=== PATIENT | male | born 1975 | race Caucasian/White ===

== ENCOUNTER 2022-04-29 09:26 | Outpatient (REF) | payer OTHER, SELFPAY ==
[2022-04-29 09:52] LABS: MANUAL DIFF FLAG NO
[2022-04-29 09:59] LABS: Basophils Absolute Auto 0.1 X10*3/uL (0.0-0.2); Basophils Percent Auto 0.4 % (0-2); Eosinophils Absolute Auto 0.2 X10*3/uL (0.0-0.4); Eosinophils Percent Auto 1.6 % (0-4); Hemoglobin 15.2 g/dl (14.0-18.0); Imm Gran Abs Auto 0.05 X10*3/uL (0.00-0.03); Imm Gran Pct Auto 0.4 % (0.0-0.4); Lymphocytes Absolute Auto 2.6 X10*3/uL (1.2-4.9); Lymphocytes Percent Auto 19.1 % (20-40); Mean Corpuscular Hemoglobin 30.9 pg (27.0-33.0); Mean Corpuscular Volume 93.5 fL (80.0-98.0); Mean Platelet Volume 9.3 fL (9.4-12.4); Monocytes Absolute Auto 0.8 X10*3/uL (0.1-1.2); Monocytes Percent Auto 6.1 % (2-11); Neutrophils Absolute Auto 9.7 x10*3/uL (2.0-8.3); Neutrophils Percent Auto 72.4 % (45-73); Platelet Count 371 X10*3/uL (160-400); Red Blood Count 4.92 X10*6/uL (4.60-5.80); White Blood Count 13.4 X10*3/uL (4.8-10.8)
[2022-04-29 11:38] LABS: Alanine Aminotransferase 39 U/L (0-40); Albumin Level 4.2 g/dL (3.5-5.0); Alkaline Phosphatase 98 U/L (39-117); Anion Gap 12 (12-20); Aspartate Amino Transferase 21 U/L (5-37); Bilirubin Total 0.5 mg/dL (0.0-1.0); Blood Urea Nitrogen 12 mg/dL (9-16); Calcium 9.4 mg/dL (8.4-10.2); Carbon Dioxide 26 mmol/L (22-29); Chloride 106 mmol/L (96-108); Cholesterol 180 mg/dL; Estimated Glomerular Filt Rate > 60; Glucose Random 88 mg/dL (60-115); HDL Cholesterol 32 mg/dL; LDL Cholesterol Calculated 116 mg/dl; Potassium 4.6 mmol/L (3.3-5.1); Sodium 139 mmol/L (135-145); Total Protein 6.6 g/dL (6.5-8.0); Triglycerides 163 mg/dL
[2022-04-29 12:00] LABS: HIV AB/AG Nonreactive (Nonreactive); HIV Num 1 0.07 S/CO (0.00-0.99)
[2022-04-29 12:05] LABS: Syphilis Screen Reactive (Nonreactive)
[2022-04-29 12:51] LABS: CT PCR NOT DETECTED (Not Detect.); NG PCR NOT DETECTED (Not Detect.)
[2022-05-05 15:43] LABS: RPR Quantitative Reactive 1:2 (Nonreactive); T.Pallidum Particle Agg Test Reactive (Nonreactive)
== END 2022-04-29 09:27 | disposition home or self-care (01) ==
LOC: HO.LAB 09:26
PROVIDERS: PCP Internal Medicine; Visit Provider Internal Medicine
DX: Z00.00 Encounter for general adult medical examination without abnormal findings (principal); A51.5 Early syphilis, latent; R14.0 Abdominal distension (gaseous); Z20.2 Contact with and (suspected) exposure to infections with a predominantly sexual mode of transmission
CPT/HCPCS: 0353U; 80053; 80061; 85025; 86592; 86780; 87389

== ENCOUNTER 2023-10-25 07:50 | Outpatient (REF) | payer OTHER, SELFPAY ==
[2023-10-25 09:30] LABS: Alanine Aminotransferase 45 U/L (0-40); Albumin Level 4.4 g/dL (3.5-5.0); Alkaline Phosphatase 88 U/L (39-117); Anion Gap 11 (12-20); Aspartate Amino Transferase 22 U/L (5-37); Bilirubin Total 0.6 mg/dL (0.0-1.0); Blood Urea Nitrogen 12 mg/dL (9-16); Calcium 9.6 mg/dL (8.4-10.2); Carbon Dioxide 26 mmol/L (22-29); Chloride 109 mmol/L (96-108); Cholesterol 180 mg/dL (<200); Estimated Glomerular Filt Rate > 60; Glucose Random 99 mg/dL (60-115); HDL Cholesterol 33 mg/dL (>40); LDL Cholesterol Calculated 130 mg/dL (<100); Potassium 4.8 mmol/L (3.3-5.1); Sodium 141 mmol/L (135-145); Total Protein 6.9 g/dL (6.5-8.0); Triglycerides 85 mg/dL (<150)
[2023-10-27 08:44] LABS: Syphilis Screen Reactive (Nonreactive)
[2023-11-01 11:57] LABS: RPR Quantitative Reactive 1:2 (Nonreactive)
[2023-11-01 11:58] LABS: T.Pallidum Particle Agg Test Reactive (Nonreactive)
== END 2023-10-25 07:51 | disposition home or self-care (01) ==
LOC: HO.LAB 07:50
PROVIDERS: PCP Internal Medicine; Visit Provider Internal Medicine
DX: Z00.00 Encounter for general adult medical examination without abnormal findings (principal); A51.5 Early syphilis, latent; I10 Essential (primary) hypertension; Z13.21 Encounter for screening for nutritional disorder; Z72.0 Tobacco use
CPT/HCPCS: 36415; 80053; 80061; 86592; 86780

== ENCOUNTER 2024-04-30 08:57 | Day surgery (SDC) | payer BC, SELFPAY ==
--- OUTSIDE RECORDS SUMMARY | 2024-04-23 11:31 | XMS_ITS ---
Author Organization [facility] Address [address] [place] [address] Care Team Providers Care Cleat Feeder Name Role Phone Otilia Martin Primary Care Provider Unavailab Rick Montenegro Unavailable [phone] Allergies No Known Allergies REASON FOR VISIT Patient presents today for a discuss screening colonoscopy Social History Tobacco Use: Social History Observation Description Date Details (start date - stop date) Current Smoker NA - NA Tobacco Use/Smoking Question Answer Notes Patient is a current smoker How often do you smoke cigarettes? every day How many cigarettes a day do you smoke? 11-20 Alcohol Screen Question Answer Notes Did you have a drink containing alcohol in the p ast year? No Points 0 Interpretation Negative Section Notes: 10-15 cigs QD; occ alcohol Problems Problem Type SNOMED Code ICD Code Onset Dates Problem Status W/U Status Risk Notes Problem Screening for malignant neoplasm of colon (185215514) Encounter for screening for malignant neoplasm of colon (Z12.11) Active confirmed Problem Pre-procedure evaluation check (129750559) Encounter for other preprocedural examination (Z01.818) Active confirmed Vital Signs Blood pressure systolic 00 mm Hg 01/16/20 24 Blood pressure diastolic 00 mm Hg 024 Height 5 ft 11 in in 01/16/2024 Weight 182 lbs 01/16/2024 BMI 25.38 kg/m2 01/16/2024 Encounters Encounter Location Date Provider Diagnosis [facility] [address] [place] [phone] 01/16/2024 Rick Cordero Encounter for screen ing for malignant neoplasm of colon Z12.11 and Encounter for other preprocedural examination Z01.818 Assessments Encounter Date Diagnosis (ICD Code) Assessment Notes Treatment Notes Treatment Clinical Notes Section Notes 01/16/2024 Encounter for screening for malignant neoplasm of colon (ICD-10 - Z12.11) Overall, Trish appears well. I did recommend a colonoscopy for screening purposes given his age and good clinical appearance. We did review the rationale for this in regard to colon cancer prevention. Full consent was obtained for this, including risks of bleeding and perforation. The procedure will be done with monitored anesthesia care. Trish is comfortable with this plan. Thank you again for allowing me to participate in Trish's care. I shall continue to keep you advised of his progress. 01/16/2024 Encounter for other preprocedural examination (ICD-10 - Z01.818) Overall, Trish appears well. I did recommend a colonoscopy for screening purposes given his age and good clinical appearance. We did review the rationale for this in regard to colon cancer prevention. Full consent was obtained for this, including risks of bleeding and perforation. The procedure will be done with monitored anesthesia care. Trish is comfortable with this plan. Thank you again for allowing me to participate in Trish's care. I shall continue to keep you advised of his progress. Plan Of Treatment Future Test Test Name Order Date COLONOSCOPY 01/16/2024 Next Appt Details Follow Up: prn, Reason: Provider Name:Rick Cordero , 04/30/2024 12:00:00 PM, [address] [place] [address], [id number], Progress Notes * MARY JO GUZMANOB:1975 (48 yo M)Acc No.[id number]:01/16/2024 Progress Notes Patient:?TRISH GUZMAN Provider:?Rick Cordero MD :1975???Age:48 Y???Sex:Male Waqar e:01/16/2024 Address:[address] [place] [address] [address] , [id number] Pcp:Otilia Martin Subjective: * Chief Complaints: * ???Patient presents today fo r a discuss screening colonoscopy * HPI: ???incontinence:? I saw Trish in the office today for evaluation of colorectal cancer screening. ?As you know, Trish is a healthy 48-year-old male who presently feels well. He enjoys a good appetite, without any significant heartburn or dysphagia. His bowel movements have been regular and without any signs of bleeding. He denies abdominal pain, jaundice, nor weight loss. He denies any known family history of colorectal cancer. He has never had a colonoscopy. * ROS:?General/Constitutional:?Change in appetite?denies.?Chills?denies.?Fatigue?denies.?Ophthalmologic:?Comments?all negative.?ENT:?Comments?all negative.?Respiratory:?hemoptysis?denies.?Cough?denies.?Cardiovascular:?Chest pain?denies.?Orthopnea?denies.?Gastrointestinal:?Comments?See HPI for details.?Genitourinary:?Hematuria?denies.?Dysuria?denies.?Musculoskeletal:?Painful joints?denies.?Weakness?denies.?Skin:?Itching?denies.?Rash?denies.?Neurologic:?Headache?denies.?Seizures?denies.?Psychiatric:?Comments?all negative.? * Medical History:? * Surgical History:?Appendecto my 2012Hernia as a child Right foot surgery * Hospitalization/Major Diagno stic Procedure:?No Hospitalization History. * Family History:?Father: dece ased.?Mother: alive.? no known hx of colon ca. * Social History:?Tobacco Use:?Tobacco Use/Smoking?Patient is a?current smoker,?How often do you smoke cigarettes??every day,?How many cigarettes a day do you smoke??11-20.?Drugs/Alcohol:?Alcohol Screen?Did you have a drink containing alcohol in the past year??No,?Points?0,?Interpretation?Negative.?Miscellaneous:?Marital status: single. Occupation: plant machinist. ???10-15 cigs QD; occ alcohol. * Medications:?None * Allergies:?N.K.D.A.yes[Aller gies Verified] Objective: * Vitals:?Wt: 182 lbs, Ht: 5 f t 11 in, BMI:25.38 Index, BP: 00/00 mm Hg. * Examination: ???General Examination: ?GENERAL APPEARANCE:?pleasant, well nourished, well developed, in no acute distress.?EYES:?sclera non-icteric.?ORAL CAVITY:?mucosa moist.?NECK/THYROID:?no cervical lymphadenopathy, neck supple.?SKIN:?nonjaundiced, no spider angiomata.?HEART:?S1, S2 normal.?LUNGS:?clear to auscultation bilaterally.?ABDOMEN:?normal bowel sounds, no guarding or rigidity, no guarding or rigidity, no masses palpable, soft, nontender, nondistended.?EXTREMITIES:?no edema.?NEUROLOGIC:?alert and oriented.? Assessment: * Assessment: 1.?Encounter for other prepr ocedural examination - Z01.818 (Primary)?2.?Encounter for screening for malignant neoplasm of colon - Z12.11? Overall, Trish appears well. I did recommend a colonoscopy for screening purposes given his age and good clinical appearance. We did review the rationale for this in regard to colon cancer prevention. Full consent was obtained for this, including risks of bleeding and perforation. The procedure will be done with monitored anesthesia care. Trish is comfortable with this plan. Thank you again for allowing me to participate in Trish's care. I shall continue to keep you advised of his progress. Plan: * Treatment: * Procedure Codes:?3017F COLOR ECTAL CA SCREEN DOC [id number] BP SCR NOT PRFRM REC REASON [id number] Pt scrn tbco and id as user * Preventive Medicine:? ??Counseling:?Care goal follow-up plan:?Above Normal BMI Follow-up?Giving encouragement to exercise,?BMI management provided?Yes.? * Follow Up:?prn * * Sign off status: Completed true * Provider:?Rick Cordero MD Date:? 024 Generated for Telloi abeba/Juan/eTransmitting on:?04/23/2024 11:31 AM EDT History and Physical Notes * HPI (History of Present Illness) Category Sub-Category Detail Notes Category Not es incontinence I saw Trish in the office today for evaluation of colorectal cancer screening. As you know, Trish is a healthy 48-year-old male who presently feels well. He enjoys a good appetite, without any significant heartburn or dysphagia. His bowel movements have been regular and without any signs of bleeding. He denies abdominal pain, jaundice, nor weight loss. He denies any known family history of colorectal cancer. He has never had a colonoscopy. Examination Category Sub-Category Detail Notes Category Not es General Examination GENERAL APPEARANCE: pleasant , well nourished, well developed, in no acute distress HEAD: EYES: sclera non-icteric EARS: NOSE: THROAT: NECK/THYROID: no cervical lymphade nopathy, neck supple HEART: S1, S2 normal CHEST: LUNGS: clear to auscultatio n bilaterally ABDOMEN: normal bowel sounds, no guarding or rigidity, no guarding or rigidity, no masses palpable, soft, nontender, nondistended NEUROLOGIC: alert and oriented SKIN: nonjaundiced, no spi aneudy angiomata EXTREMITIES: no edema PERIPHERAL PULSES: BACK: BREASTS: MUSCULOSKELETAL: MALE GENITOURINARY: LYMPH NODES: RECTAL EXAM: FEMALE GENITOURINARY: ORAL CAVITY: mucosa moist
--- OUTSIDE RECORDS SUMMARY | 2024-04-23 11:31 | XMS_ITS ---
Author Organization [facility] Address [address] [place] [phone] Care Team Providers Care Metal Sash Setter Name Role Phone Otilia Martin Primary Care Provider Unavailab Rick Montenegro [phone] REASON FOR VISIT Patient presents today for a discuss screening colonoscopy Encounters Encounter Location Date Provider Diagnosis [facility] [address] [place] [phone] 09/05/2023 Rick Cordero Plan Of Treatment Next Appt Details Provider Name:Rick Cordero , 04/30/2024 12:00:00 PM, [address] [place] [address] , [place], [place], [phone], Progress Notes * MARY JO GUZMANOB:1975 (48 yo M)Acc No.[id number]:09/05/2023 Progress Notes Patient:?TRISH GUZMAN Provider:?Rick Cordero MD :1975???Age:48 Y???Sex:Male Waqar e:09/05/2023 Address:[address] [place] [address] [address] , [place] Pcp:Otilia Martin Subjective: * Chief Complaints: * ???1. Patient presents today for a discuss screening colonoscopy. * Medical History:? Objective: * Vitals:? Assessment: Plan: * Treatment: * * The named appointment provid er may or may not be the originator of this progress note, and it is not deemed complete until electronically signed by the appointment provider. Sign off status: Pending * Provider:?Rick Cordero MD Date:? 024 Generated for Ellyn us/Juan/Bhupinder on:?04/23/2024 11:30 AM EDT
--- OUTSIDE RECORDS SUMMARY | 2024-04-23 11:31 | XMS_ITS | Patient Health Record ---
Author Organization [facility] Address [address] [place] [address] Care Team Providers Care Houseperson Name Role Phone Otilia Martin Primary Care Provider UnavailRick Healy Unavailable [phone] Allergies No Known Allergies Reason For Referral Referring Provider First Name Otilia Referring Provider Last Name Veronica Referring Provider Speciality Internal M edicine Referred Organization [facility] Referred Provider Rick Cordero Referred Address [address],[place], [place],[address], Referred Provider Specialty Gastroentero logy General Notes Silvina Varela 024 11:06:57 AM EDT > requested a [facility] referral from Dr. Pringle's office for visit with Gil Logan on [phone] 9SAID Nichole Dawn 07/16/2023 11:13:55 AM EDT > 07-16-[address] JO'S OFFICE..[employer] IS A PPO PLAN AND DOES NOT REQUIRE AN INSURANCE REFERRAL. Referral Priority Routine Social History Tobacco Use: Social History Observation [...] Problem Screening for malignant neoplasm of colon (646617797) Encounter for screening for malignant neoplasm of colon (Z12.11) Active confirmed Problem Pre-procedure evaluation check (699351482) Encounter for other preprocedural examination (Z01.818) Active confirmed Vital Signs Blood pressure diastolic 00 mm Hg 01/16/2024 Height 5 ft 11 in in 01/16/2024 Blood pressure systolic 00 mm Hg 01/16/2024 Weight 182 lbs 01/16/2024 BMI 25.38 kg/m2 01/16/2024 Encounters Encounter Location Date Provider Diagnosis [facility] [address] [place] [address] 01/16/2024 Rick Cordero Encounter for screen ing [...] Order Date COLONOSCOPY 01/16/2024 Next Appt Details Provider Name:Rick Cordero , 04/30/2024 12:00:00 PM, [address] [facility] , [place], [place], [id number], Insurance Providers Payer Name Payer Address Payer Phone Subscriber Number Group Number Insured Name Patient Relationship to Insured Coverage Start Date Coverage End Date [employer] [address] [place] [phone] [id number] TRISH GUZMAN Self - patient is the insured Medical (General) History Medical History History ICD Code Denies [place],DM,CVA,Lung disease,renal dise ase Surgical History Surgery Date(Month/Year) Appendectomy 2012 Hernia as a child Right foot surgery
[2024-04-28 13:56] VITALS: BMI 25.4
--- NOTE | 2024-04-29 12:19 | HO.ANESPROP2 ---
Documented by User: Pat Marie NP 04/29/24 12:19 HPI - Anesthesia Eval Consult details Narrative: 48yo M for Colonoscopy [facility] Past Medical History Medical History Smoker Surgical History Surgical History Hx of hernia repair Hx of foot surgery Hx of appendectomy Social History Social History Are you a primary administrator health care facility to a significant other at home: No Do you presently have visiting nurse or other home services: No Patient Tobacco Use Status: Current everyday Tobacco user Tobacco use type: Cigarette Cigarette Packs Per Day: 1 Cigarettes Per Day: 20.0 Smoked in Last 30 Days: Yes Patient Interested in Nicotine Replacement: No Use of substances other than those prescribed or required for medical reasons: No Substance Use Frequency: Daily Have you been hit, kicked, punched, or otherwise hurt by someone within the past year? If so, by whom?: No Are you DNR?: No Advance Directives: No Advance Directives Information Provided: Yes Recently lost weight without trying: No Nutrition Risks: No Nutritional Risk Meds Allergies Allergy/AdvReac Type Severity Reaction Status Date / Time No Known Allergies Allergy Verified 04/30/24 09:22 [No Known Allergies*] Home Medications ?Medication ?Instructions ?Recorded ?Confirmed ?Last Taken ?Type No Known Home Meds 04/28/24 04/28/24 Unknown History Exam Height,Weight and Vital Signs: Height 5 ft 11 in Weight 82.554 kg Assessment and Plan Assessment Anesthesia Assessment: Chart Reviewed Documented by User: Luzma Sierra MD 04/30/24 11:09 [facility] Past Medical History Medical History Smoker Surgical History Surgical History Hx of hernia repair Hx of foot surgery Hx of appendectomy History of Problems with Anesthesia: No Social History Social History Are you a primary administrator health care facility to a significant other at home: No Do you presently have visiting nurse or other home services: No Patient Tobacco Use Status: Current everyday Tobacco user Tobacco use type: Cigarette Cigarette Packs Per Day: 1 Cigarettes Per Day: 20.0 Smoked in Last 30 Days: Yes Patient Interested in Nicotine Replacement: No Use of substances other than those prescribed or required for medical reasons: No Substance Use Frequency: Daily Have you been hit, kicked, punched, or otherwise hurt by someone within the past year? If so, by whom?: No Are you DNR?: No Advance Directives: No Advance Directives Information Provided: Yes Recently lost weight without trying: No Nutrition Risks: No Nutritional Risk Meds Allergies Allergy/AdvReac Type Severity Reaction Status Date / Time No Known Allergies Allergy Verified 04/30/24 09:22 [No Known Allergies*] Home Medications ?Medication ?Instructions ?Recorded ?Confirmed ?Last Taken ?Type No Known Home Meds 04/28/24 04/28/24 Unknown History Exam Airway Mallampati Class: II TM Dist: >3cm Neck ROM: Full Loose/Missing/Broken Teeth: No Heart: RRR Lungs: CTA Assessment and Plan Assessment Anesthesia Assessment: Anesthesia Plan Discussed Final Anesthetic Review History of Problems with Anesthesia: No NPO: Yes ASA Class: II Final Preanesthetic Review: Meds/Allgs Chart Reviewed, Consent Obtained/Reviewed and Anes Risks/Benef Reviewed Patient Risk: Low Procedure Risk: Low Anesthetic Plan Anesthetic Plan: MAC: Disposition: Standard PACU
--- NOTE | 2024-04-30 09:19 | PC.NURSE ---
Patient had to be dropped at hospital due to ride issues. Questions completed in private room and documented. Patient will be brought into sss when it is his turn. Patient aware and comfortable.
[2024-04-30 10:28] VITALS: BMI 24.8
[2024-04-30] MEDS: Lactated Ringers 1,000 ML 100 ML IVCONT (10:32)
[2024-04-30 10:39] VITALS: BP 126/74; PULSE 79; RESP 18; TEMP 36.8; O2SAT 98
[2024-04-30 12:10] VITALS: BP 105/62; PULSE 75; RESP 16; TEMP 36.1; O2SAT 98
--- NOTE | 2024-04-30 12:14 | P.BOP_ITS ---
Brief Operative Note Date of Service: 04/30/24 Pre-op diagnosis: Screening Post-op diagnosis: other (Polyps) Procedure: Colonoscopy to the cecum with cold snare polypectomy x 4 at 20cm Surgeon: Rick Cordero MD Anesthesia: MAC Was an Fishing Reel Assembler used for this Procedure?: No Estimated blood loss (mL): 2.0 Pathology: other (A. Polyps at 20cm) Condition: stable Disposition: PACU
[2024-04-30 12:25] VITALS: BP 120/69; PULSE 74; RESP 16; TEMP 36.1; O2SAT 98
--- NOTE | 2024-04-30 13:00 | OP_ITS ---
DATE OF SERVICE: 04/30/2024 SURGEON: Rick Cordero MD INDICATIONS: The patient presents for evaluation of colorectal cancer screening. Full consent has been obtained from him for this, including risks of bleeding and perforation. PREOPERATIVE DIAGNOSIS: Colorectal cancer screening. POSTOPERATIVE DIAGNOSIS: PROCEDURE PERFORMED: Colonoscopy to cecum with cold snare polypectomies. ESTIMATED BLOOD LOSS: COMPLICATIONS: ANESTHESIA: Medication used, monitored anesthesia care. ASSISTANTS: SPECIMENS: POSTOPERATIVE DIAGNOSES: Colorectal cancer screening, colon polyps, internal hemorrhoids. DESCRIPTION OF PROCEDURE: The patient was placed in the left lateral decubitus position. The digital rectal exam revealed no abnormalities. The Olympus video pediatric colonoscope was entered into the rectum and advanced easily to the cecum. Once in the cecum, I did identify normal-appearing cecal pouch with appendiceal orifice and a normal-appearing ileocecal valve. The entire cecum and ileocecal valve appeared normal. There was transillumination of light deep in the right lower quadrant. The scope was slowly withdrawn assessing all mucosal surfaces carefully. Preparation was excellent. At 20 cm, were 4 polyps ranging in size from 3 mm to 8 mm. They all appeared to be grossly hyperplastic. They were all removed by cold snare polypectomy and recovered by suction. All the polypectomy sites appeared to be clean, without any sign of residual polyp nor significant bleeding. I did not visualize any other polyps, colitis, nor angiodysplasia. In the rectum, scope was retroflexed visualizing internal hemorrhoids, but no other pathology. The rectal mucosa appeared normal. The scope was straightened and withdrawn from the patient. He tolerated the procedure well and was returned to the recovery area in stable condition. IMPRESSION: 1. Colon polyps. 2. Internal hemorrhoids. PLAN: The results of the pathology will be checked. If any of these are adenomas, I would recommend a repeat colonoscopy in 5 years. If they are all hyperplastic, I would recommend a followup colonoscopy in 10 years. He will otherwise see me on a p.r.n. basis. Rick Cordero MD RMAdeline/ALCON / [phone]
== END 2024-04-30 13:54 | disposition home or self-care (01) ==
PROVIDERS: PCP Internal Medicine; Visit Provider Internal Medicine
PROC: 0DJD8ZZ Inspection of Lower Intestinal Tract, Via Natural or Artificial Opening Endoscopic (ICD-10-PCS; CPT 45378; principal; 2024-04-30 12:00)
DX: Z12.11 Encounter for screening for malignant neoplasm of colon (principal); K63.5 Polyp of colon; K64.8 Other hemorrhoids; F17.210 Nicotine dependence, cigarettes, uncomplicated
CPT/HCPCS: 45385; 88305; J1100; J2003; J2250; J2704